=== PATIENT | female | born 1965 | race Caucasian/White ===

== ENCOUNTER 2016-06-11 18:55 | Emergency (ER) | payer BC ==
[2016-06-11 19:10] VITALS: RESP 18
--- NOTE | 2016-06-11 20:00 | ED ---
General Adult HPI - General Source: patient, EMS, RN notes reviewed Mode of arrival: EMS Limitations: no limitations <Germain Lynch - Last Filed: 06/11/16 19:57> <Pierre Leon - Last Filed: 06/12/16 06:39> - General Chief complaint: Psychiatric Symptoms Stated complaint: Mental Health Time Seen by Provider: 06/11/16 19:29 - History of Present Illness Initial comments: Patient is a 51-year-old female presenting to the emergency department with police escort for depression and suicidal ideation. Patient is agitated and uncooperative. Patient states she is chronically depressed. Patient states she always has thoughts of harming herself. Patient does admit to having guns in her household. Patient states she went to see her doctor today and was given a number if she needed help. Patient called that number and did express her depression and chronic suicidal thoughts. Following this the please didn't show up on her house and patient did agree for transport. Patient is agitated that she is here and states she does not want to be here. Patient admits to having thoughts of aggression and sometimes wanting to hurt people however no specific homicidal thoughts. Patient has no specific physical complaints. Patient denies hallucinations however states she chronically does talk to people. Patient does drink alcohol daily. No marijuana use since age 11, [address] other [address] drug use. (Germain Lynch) - Related Data Home Medications Medication Instructions Recorded Confirmed Unable To Assess [Unable to Assess] 06/11/16 06/11/16 Allergies Allergy/AdvReac Type Severity Reaction Status Date / Time Unable to Assess Allergy Verified 06/11/16 19:11 Review of Systems ROS Other: All systems not noted in ROS Statement are negative. Constitutional: Denies: fever Eyes: Denies: eye pain ENT: Denies: ear pain Respiratory: Denies: cough Cardiovascular: Denies: chest pain Endocrine: Denies: fatigue Gastrointestinal: Denies: abdominal pain Genitourinary: Denies: dysuria Musculoskeletal: Denies: back pain Skin: Denies: rash Neurological: Denies: weakness Psychiatric: Reports: anxiety, depression, suicidal thoughts <Germain Lynch - Last Filed: 06/11/16 19:57> ROS Other: All systems not noted in ROS Statement are negative. <Pierre Leon - Last Filed: 06/12/16 06:39> ROS Statement: Those systems with pertinent positive or pertinent negative responses have been documented in the HPI. Past Medical History Past Medical History: Pneumonia History of Any Multi-Drug Resistant Organisms: None Reported Past Surgical History: No Surgical Hx Reported Past Psychological History: ADD/ADHD, Anxiety, Depression, PTSD Smoking Status: Current every day smoker Past Alcohol Use History: Abuse, Daily, Heavy Past Drug Use History: None Reported <Germain Lynch - Last Filed: 06/11/16 19:57> General Exam Limitations: no limitations General appearance: alert, in no apparent distress Head exam: Present: atraumatic, normocephalic Eye exam: Present: normal appearance, PERRL ENT exam: Present: normal oropharynx Neck exam: Present: normal inspection Respiratory exam: Present: normal lung sounds bilaterally Cardiovascular Exam: Present: regular rate, normal rhythm GI/Abdominal exam: Present: soft. Absent: tenderness Neurological exam: Present: alert. Absent: motor sensory deficit Psychiatric exam: Present: agitated Skin exam: Present: normal color <Germain Lynch - Last Filed: 06/11/16 19:57> Medical Decision Making <Germain Lynch - Last Filed: 06/11/16 19:57> - Lab Data Result diagrams: 06/11/16 19:45 06/11/16 19:45 <Pierre Leon - Last Filed: 06/12/16 06:39> - Medical Decision Making 51 female to the ER for reevaluation of psychiatric disease, patient was medically clear and seen and evaluated by psychiatry, patient can be discharged home (Pierre Leon) - Lab Data Lab Results 06/11/16 06/11/16 Range/Units 19:45 19:45 WBC 13.9 H (3.8-10.6) k/uL RBC 3.94 (3.80-5.40) m/uL Hgb 14.5 (11.4-16.0) gm/dL Hct 44.2 (34.0-46.0) % MCV 112.1 H (80.0-100.0) fL MCH 36.9 H (25.0-35.0) pg MCHC 32.9 (31.0-37.0) g/dL RDW 14.3 (11.5-15.5) % Plt Count 289 (150-450) k/uL Neutrophils % 66 % Lymphocytes % 25 % Monocytes % 4 % Eosinophils % 1 % Basophils % 1 % Neutrophils # 9.2 H (1.3-7.7) k/uL Lymphocytes # 3.5 (1.0-4.8) k/uL Monocytes # 0.5 (0-1.0) k/uL Eosinophils # 0.1 (0-0.7) k/uL Basophils # 0.1 (0-0.2) k/uL Toxic Granulation Present Poikilocytosis (manual Present Macrocytosis Marked Sodium 140 (137-145) mmol/L Potassium 3.8 (3.5-5.1) mmol/L Chloride 101 (98-107) mmol/L Carbon Dioxide 20 L (22-30) mmol/L Anion Gap 19 mmol/L BUN 3 L (7-17) mg/dL Creatinine 0.42 L (0.52-1.04) mg/dL Est GFR (MDRD) Af Amer >60 (>60 ml/min/1.73 sqM) Est GFR (MDRD) Non-Af >60 (>60 ml/min/1.73 sqM) Glucose 121 H (74-99) mg/dL Calcium 10.5 H (8.4-10.2) mg/dL Serum Alcohol 223 mg/dL Disposition <Germain Lynch - Last Filed: 06/11/16 19:57> <Pierre Leon - Last Filed: 06/12/16 06:39> Clinical Impression: Depression Disposition: HOME SELF-CARE Condition: Good Instructions: Depression (ED) Referrals: None,Stated [Primary Care Provider] - 1-2 days
[2016-06-11 20:13] LABS: Basophils # (A) 0.1 k/uL (0-0.2); Basophils % (A) 1 %; CH 37.7; CHCM 33.8; Eosinophils # (A) 0.1 k/uL (0-0.7); Eosinophils % (A) 1 %; HCT 44.2 % (34.0-46.0); HDW 1.97; HGB 14.5 gm/dL (11.4-16.0); Luc # (Auto) 0.38; Luc % (Auto) 3; Lymphocytes # (A) 3.5 k/uL (1.0-4.8); Lymphocytes % (A) 25 %; MCH 36.9 pg (25.0-35.0); MCHC 32.9 g/dL (31.0-37.0); MCV 112.1 fL (80.0-100.0); Macrocytosis Marked; Mean Platelet Volume 7.7; Monocytes # (A) 0.5 k/uL (0-1.0); Monocytes % (A) 4 %; Neutrophils # (A) 9.2 k/uL (1.3-7.7); Neutrophils % (A) 66 %; RBC 3.94 m/uL (3.80-5.40); RDW 14.3 % (11.5-15.5); WBC 13.9 k/uL (3.8-10.6); WBC (Perox) 13.34
[2016-06-11 20:22] LABS: Anion Gap 19 mmol/L; Blood Urea Nitrogen 3 mg/dL (7-17); Calcium 10.5 mg/dL (8.4-10.2); Carbon Dioxide 20 mmol/L (22-30); Chloride 101 mmol/L (98-107); Glucose 121 mg/dL (74-99); Non-African American GFR(MDRD) >60 (>60 ml/min/1.73 sqM); Potassium 3.8 mmol/L (3.5-5.1); Sodium 140 mmol/L (137-145)
[2016-06-11 20:25] LABS: Alcohol 223 mg/dL
[2016-06-11 20:34] LABS: Toxic Granulation Present
[2016-06-12 06:47] VITALS: BP 135/80; PULSE 88; TEMP 98.2
== END 2016-06-12 06:47 | disposition home or self-care (01) ==
LOC: EC 18:55
DX: F32.9 Major depressive disorder, single episode, unspecified (principal); R45.851 Suicidal ideations; F17.200 Nicotine dependence, unspecified, uncomplicated
CPT/HCPCS: 36415; 80048; 80053; 80320; 82746; 84439; 84443; 84550; 85025; 85652; 86038; 86140; 86160; 86200; 86431; 86618; 99284

== ENCOUNTER → 2016-07-26 | Outpatient (CLI) | payer BC ==
--- NOTE | 2016-07-29 08:47 | XR ---
EXAMINATION TYPE: XR chest 2V DATE OF EXAM: 07/26/2016 COMPARISON: NONE HISTORY: Cough TECHNIQUE: Frontal and lateral views of the chest are obtained. FINDINGS: There is no focal air space opacity, pleural effusion, or pneumothorax seen. The cardiac silhouette size is within normal limits. The osseous structures are intact. IMPRESSION: No acute cardiopulmonary process.
== END ==
LOC: RADXRYALE 09:30
PROVIDERS: ATTEND Physician Assistant Medical
DX: R05 Cough (principal)
CPT/HCPCS: 71020

== ENCOUNTER → 2016-08-29 | Outpatient (CLI) | payer BC ==
--- NOTE | 2016-08-29 12:59 | US ---
EXAMINATION TYPE: US abdomen complete DATE OF EXAM: 08/29/2016 COMPARISON: NONE CLINICAL HISTORY: K70.10 Alcoholic hepatitis without ascites. EXAM MEASUREMENTS: Liver Length: 14.0 cm Gallbladder Wall: 0.1 cm CBD: 0.3 cm Spleen: 7.9 cm Right Kidney: 9.4 x 3.9 x 4.4 cm Left Kidney: 9.9 x 5.0 x3.9 cm Pancreas: wnl portions seen Liver: wnl Gallbladder: wnl Evidence for sonographic Rodriguez's sign: No CBD: wnl Spleen: wnl Right Kidney: No hydronephrosis or masses seen Left Kidney: No hydronephrosis or masses seen Upper IVC: wnl portion seen Abd Aorta: wnl portion seen The liver is homogenous. The intrahepatic portion of the IVC and proximal abdominal aorta are within normal limits. There is no evidence of cholelithiasis. Common bile duct is unremarkable. The visu alized portions of the pancreas are homogenous. The spleen is unremarkable. Kidneys are symmetric a nd free of hydronephrosis. No renal lesions are seen. IMPRESSION: Unremarkable study
== END | disposition home or self-care (01) ==
LOC: RADUSWWP 10:35
DX: K70.10 Alcoholic hepatitis without ascites (principal)
CPT/HCPCS: 76700

== ENCOUNTER 2016-09-12 17:50 | Inpatient (IN) | payer BC ==
[2016-09-12] MEDS ORDERED: SODIUM CHLORIDE 0.9% 1,000 ML IV STA ×2 (18:05)
[2016-09-12 18:41] LABS: Basophils % (A) 0 %; CH 35.4; CHCM 35.6; Eosinophils % (A) 0 %; HDW 2.13; Luc # (Auto) 0.17; Luc % (Auto) 2; Lymphocytes # (A) 1.7 k/uL (1.0-4.8); Lymphocytes % (A) 15 %; MCH 35.1 pg (25.0-35.0); MCHC 35.2 g/dL (31.0-37.0); MCV 99.5 fL (80.0-100.0); Macrocytosis Slight; Mean Platelet Volume 9.2; Monocytes # (A) 0.1 k/uL (0-1.0); Monocytes % (A) 1 %; Neutrophils # (A) 9.2 k/uL (1.3-7.7); Neutrophils % (A) 82 %; RBC 1.49 m/uL (3.80-5.40); RDW 15.1 % (11.5-15.5); WBC 11.2 k/uL (3.8-10.6); WBC (Perox) 11.11
[2016-09-12 18:46] LABS: HCT 14.8 % (34.0-46.0); HGB 5.2 gm/dL (11.4-16.0)
[2016-09-12 18:50] LABS: INR 1.3 (<1.2); Partial Thromboplastin Time 25.7 sec (22.0-30.0); Prothrombin Time 13.1 sec (9.0-12.0)
[2016-09-12 18:55] LABS: Calcium 8.4 mg/dL (8.4-10.2); Magnesium 1.7 mg/dL (1.6-2.3); Phosphorous 2.7 mg/dL (2.5-4.5); Total Bilirubin 2.7 mg/dL (0.2-1.3); Total Protein 6.5 g/dL (6.3-8.2)
[2016-09-12 18:56] LABS: Creatine Kinase 41 U/L (30-135)
[2016-09-12 19:01] LABS: Potassium 2.4 mmol/L (3.5-5.1)
[2016-09-12 19:09] LABS: Creatine Kinase MB <0.2 ng/mL (0.0-2.4); Troponin I <0.012 ng/mL (0.000-0.034)
[2016-09-12 19:15] LABS: Polychromasia Present
[2016-09-12] MEDS: POTASSIUM CHLORIDE 20 MEQ, LIDOCAINE 2% INJ 20 MG in SODIUM CHLORIDE 0.9% 100 ML IVPB SCH (19:59)
[2016-09-12 20:08] LABS: Appearance,Urine Cloudy (Clear); Bacteria,Urine Many /hpf; Bilirubin,Urine 1+ (Negative); Glucose,Urine (UA) Negative (Negative); Ketones,Urine Negative (Negative); Leukocyte Esterase,Urine Moderate (Negative); Mucus,Urine Rare /hpf; Nitrite,Urine Negative (Negative); PH, Urine 5.5 (5.0-8.0); Particle Count 33821; Protein,Urine Trace (Negative); RBC,Urine 5 /hpf (0-5); UA Billing (MACRO vs. MICRO) MICRO
[2016-09-12] MEDS ORDERED: PANTOPRAZOLE 40 MG/10 ML VIAL IVP STA (20:09)
[2016-09-12] MEDS ORDERED: POTASSIUM CHLORIDE 20 MEQ, LIDOCAINE 2% INJ 20 MG in SODIUM CHLORIDE 0.9% 100 ML IVPB ONE (20:09)
--- NOTE | 2016-09-12 20:18 | ED ---
Weakness HPI - General Chief complaint: Weakness Stated complaint: dehydration,hypotension Time Seen by Provider: 09/12/16 17:57 Source: patient, EMS Mode of arrival: EMS Limitations: no limitations - History of Present Illness Initial comments: This 51-year-old white female presents with the complaint of some weakness. She apparently was found down on the floor on a pile of clothes by her two daughters this afternoon. She apparently been there for at least several hours but the exact time is unknown. The patient does not have any current complaints. She denies any actual injuries. She overall is a very poor historian. The daughters relate that she has a severe alcoholism problem. She also has a psychiatric history. She does not take care of herself very well. She has not been eating or drinking much in the past several days. Her last drink was just a small amount 2 days ago. She apparently has lost about 40 pounds over the last month or 2. There is no other complaints or modifying factors. History is somewhat limited due to patient's mental status. - Related Data Home Medications Medication Instructions Recorded Confirmed FLUoxetine HCL [PROzac] 20 mg PO HS 09/12/16 09/12/16 Levothyroxine Sodium [Synthroid] 25 mcg PO DAILY 09/12/16 09/12/16 Naproxen 500 mg PO BID PRN 09/12/16 09/12/16 clonazePAM [KlonoPIN] 0.5 mg PO BID PRN 09/12/16 09/12/16 Allergies Allergy/AdvReac Type Severity Reaction Status Date / Time prednisone AdvReac Nausea & Verified 09/12/16 18:39 Vomiting Review of Systems ROS Statement: Those systems with pertinent positive or pertinent negative responses have been documented in the HPI. ROS Other: All systems not noted in ROS Statement are negative. Past Medical History Past Medical History: Liver Disease, Pneumonia Additional Past Medical History / Comment(s): Failure to thrive, liver failure History of Any Multi-Drug Resistant Organisms: None Reported Past Surgical History: No Surgical Hx Reported Past Psychological History: ADD/ADHD, Anxiety, Depression, PTSD Smoking Status: Current every day smoker Past Alcohol Use History: Abuse, Daily, Heavy Past Drug Use History: None Reported General Exam - General Exam Comments Initial Comments: GENERAL: The patient is malnourished and dehydrated. VITAL SIGNS: Heart rate, blood pressure, respiratory rate reviewed as recorded in nurse's notes. EYES: Pupils are round and reactive. Extraocular movements are intact. No conjunctival / lid redness or swelling. ENT: No external evidence of injury, swelling, or ecchymosis. Airway is patent. Throat is clear. Mouth is extremely dry with sores on her lips. NECK: There is some tenderness noted to the bilateral paracervical musculature. No subcutaneous emphysema. Trachea is midline. No thyroid mass. HEART: Regular rate and rhythm. Good peripheral pulses. LUNGS/CHEST: Breath sounds clear and equal bilaterally. No rales, rhonchi, or wheezes. No ecchymosis, subcutaneous emphysema, or tenderness. ABDOMEN: Abdomen soft without tenderness. No palpable masses or organomegaly. No peritoneal signs. No abdominal wall swelling or ecchymosis. EXTREMITIES: No extremity tenderness. Normal muscle tone and function. No thoracolumbar tenderness. NEUROLOGIC: Sensation is grossly intact. Cranial nerve exam reveals face is symmetrical, tongue is midline, speech is clear. SKIN: There is a slight bruise noted to the lateral right shoulder. No induration or masses noted. PSYCHIATRIC: Alert and conversive. She seems to ramble about nonpertinent the events. Limitations: no limitations Course Vital Signs 09/12/16 09/12/16 09/12/16 17:54 18:25 19:15 Temperature 97.3 F L 98.3 F Pulse Rate 68 95 97 Pulse Rate [ Machine Trimmer ] Respiratory 20 20 20 Rate Blood Pressure 95/58 95/60 141/90 O2 Sat by Pulse 95 95 90 L Oximetry 09/12/16 19:27 Temperature Pulse Rate Pulse Rate [ 109 H Machine Trimmer ] Respiratory Rate Blood Pressure O2 Sat by Pulse Oximetry Medical Decision Making - Medical Decision Making The patient was seen and examined. All diagnostics were reviewed. She was hydrated via EMS as her blood pressure was quite low with a systolic of 77. She received additional hydration in our ER. The EKG was done and shows a normal sinus rhythm at a rate of 90. There is no acute ST-T wave changes identified. The patient's QRS duration is 100 and the QTc interval is 308. A chest x-ray was done and does not show any acute processes. The computed tomography scan of the brain was negative. The CT of the cervical spine shows some degenerative changes. The laboratory shows a severe hypokalemia as well as a hypochloremia. She has a severe anemia with a hemoglobin of 5.2. She has a degree of renal insufficiency as well. Her potassium is replaced. 3 units of blood are ordered for transfusion. Even though her initial Hemoccult is negative, it is felt as though she likely does have a GI bleed. She apparently does have a history of previous GI bleed as well which is likely due to her alcohol abuse. It is felt as though he would benefit from admission to the hospital for further treatment. Case is discussed with internal medicine and they're agreeable to admission as well. Case was discussed with Dr. Baird from ICU and patient be admitted to the intensive care unit for further treatment with GI and ICU to consult. She appears improved on recheck. Approximately 30 minutes of critical care time was utilized and the treatment of the patient. - Lab Data Result diagrams: 09/12/16 18:19 09/12/16 18:19 Lab Results 09/12/16 09/12/16 09/12/16 Range/Units 18:19 18:19 18:19 WBC 11.2 H (3.8-10.6) k/uL RBC 1.49 L (3.80-5.40) m/uL Hgb 5.2 L* (11.4-16.0) gm/dL Hct 14.8 L* (34.0-46.0) % MCV 99.5 (80.0-100.0) fL MCH 35.1 H (25.0-35.0) pg MCHC 35.2 (31.0-37.0) g/dL RDW 15.1 (11.5-15.5) % Plt Count 89 L (150-450) k/uL Neutrophils % 82 % Lymphocytes % 15 % Monocytes % 1 % Eosinophils % 0 % Basophils % 0 % Neutrophils # 9.2 H (1.3-7.7) k/uL Lymphocytes # 1.7 (1.0-4.8) k/uL Monocytes # 0.1 (0-1.0) k/uL Eosinophils # 0.0 (0-0.7) k/uL Basophils # 0.0 (0-0.2) k/uL Polychromasia Present Macrocytosis Slight PT (9.0-12.0) sec INR (<1.2) APTT (22.0-30.0) sec Sodium 131 L (137-145) mmol/L Potassium 2.4 L* (3.5-5.1) mmol/L Chloride 88 L (98-107) mmol/L Carbon Dioxide 25 (22-30) mmol/L Anion Gap 18 mmol/L BUN 45 H (7-17) mg/dL Creatinine 1.20 H (0.52-1.04) mg/dL Est GFR (MDRD) Af Amer 58 (>60 ml/min/1.73 sqM) Est GFR (MDRD) Non-Af 48 (>60 ml/min/1.73 sqM) Glucose 114 H (74-99) mg/dL Plasma Lactic Acid Maaynk (0.7-2.0) mmol/L Calcium 8.4 (8.4-10.2) mg/dL Phosphorus 2.7 (2.5-4.5) mg/dL Magnesium 1.7 (1.6-2.3) mg/dL Total Bilirubin 2.7 H (0.2-1.3) mg/dL AST 47 H (14-36) U/L ALT 27 (9-52) U/L Alkaline Phosphatase 171 H (38-126) U/L Total Creatine Kinase 41 (30-135) U/L CK-MB (CK-2) <0.2 (0.0-2.4) ng/mL CK-MB (CK-2) Rel Index Troponin I <0.012 (0.000-0.034) ng/mL Total Protein 6.5 (6.3-8.2) g/dL Albumin 3.5 (3.5-5.0) g/dL TSH 7.760 H (0.465-4.680) mIU/L Urine Color Urine Appearance (Clear) Urine pH (5.0-8.0) Ur Specific [place] (1.001-1.035) Urine Protein (Negative) Urine Glucose (UA) (Negative) Urine Ketones (Negative) Urine Blood (Negative) Urine Nitrite (Negative) Urine Bilirubin (Negative) Urine Urobilinogen (<2.0) mg/dL Ur Leukocyte Esterase (Negative) Urine RBC (0-5) /hpf Urine Bacteria (None) /hpf Hyaline Casts (0-2) /lpf Urine Mucus (None) /hpf Urine Yeast (Budding) (None) /hpf Stool Occult Blood (Negative) Blood Type Blood Type Confirm Blood Type Recheck Antibody Screen Crossmatch Spec Expiration Date 09/12/16 09/12/16 09/12/16 Range/Units 18:19 18:19 18:19 WBC (3.8-10.6) k/uL RBC (3.80-5.40) m/uL Hgb (11.4-16.0) gm/dL Hct (34.0-46.0) % MCV (80.0-100.0) fL MCH (25.0-35.0) pg MCHC (31.0-37.0) g/dL RDW (11.5-15.5) % Plt Count (150-450) k/uL Neutrophils % % Lymphocytes % % Monocytes % % Eosinophils % % Basophils % % Neutrophils # (1.3-7.7) k/uL Lymphocytes # (1.0-4.8) k/uL Monocytes # (0-1.0) k/uL Eosinophils # (0-0.7) k/uL Basophils # (0-0.2) k/uL Polychromasia Macrocytosis PT 13.1 H (9.0-12.0) sec INR 1.3 H (<1.2) APTT 25.7 (22.0-30.0) sec Sodium (137-145) mmol/L Potassium (3.5-5.1) mmol/L Chloride (98-107) mmol/L Carbon Dioxide (22-30) mmol/L Anion Gap mmol/L BUN (7-17) mg/dL Creatinine (0.52-1.04) mg/dL Est GFR (MDRD) Af Amer (>60 ml/min/1.73 sqM) Est GFR (MDRD) Non-Af (>60 ml/min/1.73 sqM) Glucose (74-99) mg/dL Plasma Lactic Acid Mayank 2.3 H* (0.7-2.0) mmol/L Calcium (8.4-10.2) mg/dL Phosphorus (2.5-4.5) mg/dL Magnesium (1.6-2.3) mg/dL Total Bilirubin (0.2-1.3) mg/dL AST (14-36) U/L ALT (9-52) U/L Alkaline Phosphatase (38-126) U/L Total Creatine Kinase (30-135) U/L CK-MB (CK-2) (0.0-2.4) ng/mL CK-MB (CK-2) Rel Index Troponin I (0.000-0.034) ng/mL Total Protein (6.3-8.2) g/dL Albumin (3.5-5.0) g/dL TSH (0.465-4.680) mIU/L Urine Color Urine Appearance (Clear) Urine pH (5.0-8.0) Ur Specific [place] (1.001-1.035) Urine Protein (Negative) Urine Glucose (UA) (Negative) Urine Ketones (Negative) Urine Blood (Negative) Urine Nitrite (Negative) Urine Bilirubin (Negative) Urine Urobilinogen (<2.0) mg/dL Ur Leukocyte Esterase (Negative) Urine RBC (0-5) /hpf Urine Bacteria (None) /hpf Hyaline Casts (0-2) /lpf Urine Mucus (None) /hpf Urine Yeast (Budding) (None) /hpf Stool Occult Blood (Negative) Blood Type A Positive Blood Type Confirm Blood Type Recheck CABO Indicated Antibody Screen NEGATIVE Crossmatch See Detail Spec Expiration Date 09/15/2016 - 231809/12/16 09/12/16 09/12/16 Range/Units 19:13 19:57 19:57 WBC (3.8-10.6) k/uL RBC (3.80-5.40) m/uL Hgb (11.4-16.0) gm/dL Hct (34.0-46.0) % MCV (80.0-100.0) fL MCH (25.0-35.0) pg MCHC (31.0-37.0) g/dL RDW (11.5-15.5) % Plt Count (150-450) k/uL Neutrophils % % Lymphocytes % % Monocytes % % Eosinophils % % Basophils % % Neutrophils # (1.3-7.7) k/uL Lymphocytes # (1.0-4.8) k/uL Monocytes # (0-1.0) k/uL Eosinophils # (0-0.7) k/uL Basophils # (0-0.2) k/uL Polychromasia Macrocytosis PT (9.0-12.0) sec INR (<1.2) APTT (22.0-30.0) sec Sodium (137-145) mmol/L Potassium (3.5-5.1) mmol/L Chloride (98-107) mmol/L Carbon Dioxide (22-30) mmol/L Anion Gap mmol/L BUN (7-17) mg/dL Creatinine (0.52-1.04) mg/dL Est GFR (MDRD) Af Amer (>60 ml/min/1.73 sqM) Est GFR (MDRD) Non-Af (>60 ml/min/1.73 sqM) Glucose (74-99) mg/dL Plasma Lactic Acid [place]ank (0.7-2.0) mmol/L Calcium (8.4-10.2) mg/dL Phosphorus (2.5-4.5) mg/dL Magnesium (1.6-2.3) mg/dL Total Bilirubin (0.2-1.3) mg/dL AST (14-36) U/L ALT (9-52) U/L Alkaline Phosphatase (38-126) U/L Total Creatine Kinase (30-135) U/L CK-MB (CK-2) (0.0-2.4) ng/mL CK-MB (CK-2) Rel Index Troponin I (0.000-0.034) ng/mL Total Protein (6.3-8.2) g/dL Albumin (3.5-5.0) g/dL TSH (0.465-4.680) mIU/L Urine Color Yellow Urine Appearance Cloudy H (Clear) Urine pH 5.5 (5.0-8.0) Ur Specific [place] 1.010 (1.001-1.035) Urine Protein Trace H (Negative) Urine Glucose (UA) Negative (Negative) Urine Ketones Negative (Negative) Urine Blood Negative (Negative) Urine Nitrite Negative (Negative) Urine Bilirubin 1+ H (Negative) Urine Urobilinogen 6.0 (<2.0) mg/dL Ur Leukocyte Esterase Moderate H (Negative) Urine RBC 5 (0-5) /hpf Urine Bacteria Many H (None) /hpf Hyaline Casts 7 H (0-2) /lpf Urine Mucus Rare H (None) /hpf Urine Yeast (Budding) Occasional H (None) /hpf Stool Occult Blood Negative (Negative) Blood Type Blood Type Confirm A Positive Blood Type Recheck Antibody Screen Crossmatch Spec Expiration Date Disposition Clinical Impression: GI bleed, Anemia, Alcohol abuse, Fall, Weakness, Hypochloremia, Cervical arthritis, Dehydration, Hypothyroidism, Hypotension, Hyponatremia, Hypoxia Disposition: ADMITTED IP TO THIS HOSP Condition: Critical Referrals: Dank Gonzalez DO [Primary Care Provider] - 1-2 days Time of Disposition: 20:18 Decision Date: 09/12/16 Decision Time: 20:18
[2016-09-12] MEDS ORDERED: ACETAMINOPHEN TAB 325 MG TAB PO PRN (20:34)
[2016-09-12] MEDS ORDERED: IPRATROPIUM-ALBUTEROL 3 ML NEB INHALATION PRN (20:34)
[2016-09-12] MEDS ORDERED: NALOXONE 0.4 MG/ML 1 ML VIAL IV PRN (20:34)
[2016-09-12] MEDS ORDERED: MORPHINE SULFATE 4 MG/ML SYRINGE IV PRN (20:34)
[2016-09-12] MEDS ORDERED: clonazePAM 0.5 MG TAB PO PRN (20:38)
[2016-09-12] MEDS ORDERED: FLUoxetine HCL 20 MG CAP PO SCH (21:00)
--- NOTE | 2016-09-12 21:36 | XR ---
EXAMINATION TYPE: XR chest 2V DATE OF EXAM: 09/12/2016 COMPARISON: 07/26/2016 HISTORY: Weakness TECHNIQUE: Frontal and lateral views of the chest are obtained. FINDINGS: Heart and mediastinum are normal. Lungs are clear. Diaphragm is normal. There are chest le ads. IMPRESSION: Normal chest. No change.
[2016-09-12 21:39] LABS: Glucose,Whole Blood 126 mg/dL (75-99)
--- NOTE | 2016-09-12 21:56 | CT ---
EXAMINATION TYPE: CT brain sushila mcbride DATE OF EXAM: 09/12/2016 COMPARISON: NONE HISTORY: Weakness neck pain CT DLP: mGycm Automated exposure control for dose reduction was used. TECHNIQUE: CT scan of the head and cervical spine are performed without contrast. FINDINGS: There is some cerebral cortical atrophy. There is no mass effect nor midline shift. There is no sign of intracranial hemorrhage. Calvarium is intact. There is mild straightening of the vertebra. There is mild spurring of the endplates in the mid and l ower cervical spine. There is multilevel hypertrophic cervical facet arthropathy. There is no evidenc e of a fracture. Skull base is intact. IMPRESSION: Mild cerebral atrophy. No acute intracranial abnormality. Multilevel cervical spondylosis. No fracture.
[2016-09-12 22:37] VITALS: BMI 18.5
[2016-09-12 23:20] VITALS: RESP 18
[2016-09-13] MEDS: POTASSIUM CHLORIDE 20 MEQ, LIDOCAINE 2% INJ 20 MG in SODIUM CHLORIDE 0.9% 100 ML IVPB SCH (00:39)
[2016-09-13] MEDS ORDERED: SODIUM CHLORIDE 0.9% 1,000 ML IV ONE ×2 (00:41→03:30)
[2016-09-13] MEDS: LORazepam 2 MG/ML SYRINGE IV PRN ×2 (02:00→10:23)
[2016-09-13] MEDS ORDERED: LEVOTHYROXINE 25 MCG TAB PO SCH (06:30)
[2016-09-13 06:35] VITALS: TEMP 98.4
[2016-09-13 07:25] LABS: Anisocytosis Moderate; Basophils % (A) 0 %; CH 30.2; CHCM 34.6; Eosinophils % (A) 0 %; HCT 28.5 % (34.0-46.0); HDW 3.14; Luc # (Auto) 0.06; Luc % (Auto) 1; Lymphocytes # (A) 1.2 k/uL (1.0-4.8); Lymphocytes % (A) 12 %; MCHC 34.2 g/dL (31.0-37.0); Mean Platelet Volume 9.5; Microcytosis Slight; Monocytes # (A) 0.1 k/uL (0-1.0); Monocytes % (A) 1 %; Neutrophils # (A) 8.9 k/uL (1.3-7.7); Neutrophils % (A) 86 %; RBC 3.26 m/uL (3.80-5.40); RDW 22.8 % (11.5-15.5); WBC 10.3 k/uL (3.8-10.6)
[2016-09-13 07:26] LABS: HGB 9.8 gm/dL (11.4-16.0)
[2016-09-13 07:27] LABS: MCV 87.5 fL (80.0-100.0)
[2016-09-13 07:31] LABS: Anion Gap 13 mmol/L; Blood Urea Nitrogen 34 mg/dL (7-17); Carbon Dioxide 23 mmol/L (22-30); Chloride 102 mmol/L (98-107); Glucose 116 mg/dL (74-99); Non-African American GFR(MDRD) >60 (>60 ml/min/1.73 sqM); Sodium 138 mmol/L (137-145)
[2016-09-13 07:40] LABS: Potassium 2.7 mmol/L (3.5-5.1)
[2016-09-13] MEDS ORDERED: Potassium Replacement Protocol 1 EACH MISC MISCELLANE PRN (08:06)
[2016-09-13] MEDS ORDERED: PANTOPRAZOLE 40 MG/10 ML VIAL IV SCH (09:00)
[2016-09-13] MEDS: POTASSIUM CHLORIDE 10 MEQ, LIDOCAINE 2% INJ 10 MG in SODIUM CHLORIDE 0.9% 100 ML IV SCH ×2 (09:15→11:41)
--- NOTE | 2016-09-13 09:21 | P.CONS ---
History of Present Illness - Reason for Consult Consult date: 09/13/16 anemia possible GI bleed Requesting physician: Bradley Rainey - History of Present Illness 51-year-old female with a history of EtOH abuse admitted status post fall with active alcohol intake last drink about 3 days ago. Medical records nursing staff assisted with medical history. Apparently patient has not been eating well for the last few months with decreased appetite with weight loss more than 20 pounds. Consultation requested for anemia possible GI bleed. Presently patient is resting in the ICU incontinent of urine and nonbloody liquid stool. Recently evaluated in the GI office last month regards to her history of alcoholism. No history of EGD colonoscopy. Outpatient abdominal ultrasound reported no stones. Liver/gallbladder within normal limits. Admission hemoglobin 5.2. Received 3 units of blood present hemoglobin is 9.8. MCV 99. Platelet 89,000 now 67,000. Hemoglobin June 2016 was 14.5. MCV 112. Platelet 289. Admission INR 1.3. Hemoccult stool negative. Total bilirubin 2.7. AST 47. ALT 27. Alkaline phosphatase 171. Potassium 2.4. BUN 45 currently 1.2. Sodium 131. Review of Systems Medical records nursing staff assisted with history Constitutional: Denies fever, chills, sweats, weight gain, or loss. HEENT: Negative for migraines, blurred vision or loss, earaches, drainage, tinnitus, oral mucosal lesions, dysphagia, or odynophagia. CARDIAC: Negative for chest pain, arrhythmias, or palpitation. RESPIRATORY: Nicotine cigarette dependency. Negative for shortness of breath, hemoptysis, cough, or sputum production. GI: See HPI for pertinent findings. : Negative for hematuria, urgency, frequency, polyuria, or dysuria. GYNc: Denies possibility of . Negative vaginal discharge. MUSCULOSKELETAL: Negative for muscle aches, swelling, arthritis, and arthralgias. NEUROLOGIC: Negative for stroke or TIA. ENDOCRINE: Hypothyroidism.. SKIN: Negative for rash or itching. PSYCHIATRIC: Anxiety. Depression. ADHD. PTSD. ROS unobtainable: due to mental status All systems: negative Past Medical History Past Medical History: GERD/Reflux, Liver Disease, Pneumonia, Thyroid Disorder Additional Past Medical History / Comment(s): Failure to thrive, liver failure History of Any Multi-Drug Resistant Organisms: None Reported Past Surgical History: Tubal Ligation Past Anesthesia/Blood Transfusion Reactions: No Reported Reaction Past Psychological History: ADD/ADHD, Anxiety, Depression, PTSD Smoking Status: Current every day smoker Past Alcohol Use History: Abuse, Daily, Heavy Past Drug Use History: None Reported Medications and Allergies Home Medications Medication Instructions Recorded Confirmed Type FLUoxetine HCL [PROzac] 20 mg PO HS 09/12/16 09/12/16 History Levothyroxine Sodium [Synthroid] 25 mcg PO DAILY 09/12/16 09/12/16 History Naproxen 500 mg PO BID PRN 09/12/16 09/12/16 History clonazePAM [KlonoPIN] 0.5 mg PO BID PRN 09/12/16 09/12/16 History Allergies Allergy/AdvReac Type Severity Reaction Status Date / Time prednisone AdvReac Nausea & Verified 09/12/16 18:39 Vomiting Physical Exam Vitals: Vital Signs Temp Pulse Pulse Resp BP Pulse Ox 09/13/16 06:00 126 H 94/66 99 09/13/16 05:55 84 94/66 99 09/13/16 05:50 88 91/62 94 L 09/13/16 05:45 86 91/62 100 09/13/16 05:40 83 91/62 97 09/13/16 05:35 101 H 88/66 91 L 09/13/16 05:30 72 88/66 92 L 09/13/16 05:25 96 99 09/13/16 05:20 85 74/60 96 09/13/16 05:15 81 74/60 99 09/13/16 05:10 109 H 74/60 94 L 09/13/16 05:05 84 74/60 99 09/13/16 05:00 98.4 F 82 74/60 99 09/13/16 04:55 85 74/60 97 09/13/16 04:50 85 74/60 94 L 09/13/16 04:45 84 74/60 92 L 09/13/16 04:40 122 H 74/60 97 09/13/16 04:35 99 74/60 100 09/13/16 04:30 98.5 F 99 74/60 97 09/13/16 04:25 91 74/60 99 09/13/16 04:20 92 74/60 98 09/13/16 04:15 84 74/60 97 09/13/16 04:10 82 74/60 97 09/13/16 04:05 82 74/60 95 09/13/16 04:00 98.7 F 85 18 74/60 99 09/13/16 03:55 93 74/60 98 09/13/16 03:50 83 74/60 99 09/13/16 03:45 84 74/60 99 09/13/16 03:40 94 74/60 99 09/13/16 03:35 98.7 F 94 74/60 96 09/13/16 03:30 86 74/60 93 L 09/13/16 03:25 85 74/60 100 09/13/16 03:20 81 100 09/13/16 03:15 84 98 09/13/16 03:10 102 H 97 09/13/16 03:05 120 H 96 09/13/16 03:00 83 100 09/13/16 02:55 84 100 09/13/16 02:50 83 99 09/13/16 02:45 82 100 09/13/16 02:40 85 100 09/13/16 02:35 92 99 09/13/16 02:30 82 99 09/13/16 02:25 79 82/56 98 09/13/16 02:20 81 82/56 99 09/13/16 02:15 82 82/56 99 09/13/16 02:10 81 82/56 99 09/13/16 02:05 83 82/56 97 09/13/16 02:00 82 82/56 100 09/13/16 01:50 82 82/56 99 09/13/16 01:40 82 82/56 98 09/13/16 01:30 83 82/56 99 09/13/16 01:20 82 82/56 98 09/13/16 01:15 98.7 F 82 18 74/60 99 09/13/16 01:10 98.7 F 83 82/56 99 09/13/16 01:00 81 82/56 99 09/13/16 00:50 87 82/56 100 09/13/16 00:40 80 82/56 100 09/13/16 00:30 71 82/56 87 L 09/13/16 00:20 86 83/61 99 09/13/16 00:10 86 83/61 99 09/13/16 00:00 83 18 88/59 99 09/12/16 23:53 79 80/59 99 09/12/16 23:50 85 80/59 99 09/12/16 23:40 87 86/63 100 09/12/16 23:30 83/63 100 09/12/16 23:20 98.2 F 86 18 82/61 100 09/12/16 23:16 96.9 F L 87 18 82/61 98 09/12/16 23:10 87 83/58 100 09/12/16 23:00 87 83/58 100 09/12/16 22:50 83 83/58 100 09/12/16 22:40 100 83/58 100 09/12/16 22:30 105 H 78/53 96 09/12/16 22:20 88 78/53 100 09/12/16 22:10 89 78/53 100 09/12/16 22:00 91 78/53 99 09/12/16 21:50 98 75/51 91 L 09/12/16 21:40 91 74/51 100 09/12/16 21:37 118 H 09/12/16 21:20 97.2 F L 107 H 20 78/47 94 L 09/12/16 20:50 97.5 F L 98 20 87/50 94 L 09/12/16 20:40 97.1 F L 93 20 86/50 96 09/12/16 20:37 94 84/43 09/12/16 20:32 97.0 F L 86 20 81/44 94 L 09/12/16 19:27 109 H 09/12/16 19:15 98.3 F 97 20 141/90 90 L 09/12/16 18:25 95 20 95/60 95 09/12/16 17:54 97.3 F L 68 20 95/58 95 Intake and Output 09/12/16 09/13/16 09/13/16 22:59 06:59 14:59 Intake Total 1310 3520 Balance 1310 3520 Intake: IV 2800 Sodium Chloride 0.9% 1, 800 000 ml @ 100 mls/hr IV . Q10H STA Rx#:[id number] Sodium Chloride 0.9% 1, 2000 000 ml @ 999 mls/hr IV . Q1H1M ONE Rx#:[id number] Amount of Fluid Infused ( 1000 ml) Blood Product 310 620 Rc As-3 Unit 310 [id number] Rc As-3 Unit 310 [id number] Rc As-3 Unit 310 [id number] Other 100 Rc As-3 Unit 100 [id number] Other: # Voids 1 # Bowel Movements 1 Weight 45.9 kg 45.9 kg General appearance: The patient is arousable somewhat drowsy answers simple questions no acute distress. HET: Head is normocephalic and atraumatic. Pupils are equal and reactive. Oropharynx is clear without lesions. Neck: Supple without lymphadenopathy. Trachea midline. Heart: S1 S2. Regular rate and rhythm. Lungs: No crackles or wheezes are heard. Abdomen: Soft, nontender, nondistended with bowel sounds. No peritoneal signs. No palpable organomegaly or masses. Incontinent of liquid brown stool. Extremities: Normal skin color and turgor. No cyanosis, rash, ulceration, clubbing, or edema. Radial and pedal pulses are 2/4 bilaterally. Neurological: No focal deficits. Strength and sensation are grossly intact. Results CBC & Chem 7: 09/13/16 06:57 09/13/16 06:57 Labs: Abnormal Lab Results - Last 24 Hours (Table) 09/12/16 09/12/16 09/12/16 Range/Units 18:19 18:19 18:19 WBC 11.2 H (3.8-10.6) k/uL RBC 1.49 L (3.80-5.40) m/uL Hgb 5.2 L* (11.4-16.0) gm/dL Hct 14.8 L* (34.0-46.0) % MCH 35.1 H (25.0-35.0) pg RDW (11.5-15.5) % Plt Count 89 L (150-450) k/uL Neutrophils # 9.2 H (1.3-7.7) k/uL PT 13.1 H (9.0-12.0) sec INR 1.3 H (<1.2) Sodium 131 L (137-145) mmol/L Potassium 2.4 L* (3.5-5.1) mmol/L Chloride 88 L (98-107) mmol/L BUN 45 H (7-17) mg/dL Creatinine 1.20 H (0.52-1.04) mg/dL Glucose 114 H (74-99) mg/dL POC Glucose (mg/dL) (75-99) mg/dL Plasma Lactic Acid Mayank (0.7-2.0) mmol/L Calcium (8.4-10.2) mg/dL Total Bilirubin 2.7 H (0.2-1.3) mg/dL AST 47 H (14-36) U/L Alkaline Phosphatase 171 H (38-126) U/L TSH 7.760 H (0.465-4.680) mIU/L Urine Appearance (Clear) Urine Protein (Negative) Urine Bilirubin (Negative) Ur Leukocyte Esterase (Negative) Urine Bacteria (None) /hpf Hyaline Casts (0-2) /lpf Urine Mucus (None) /hpf Urine Yeast (Budding) (None) /hpf Crossmatch 09/12/16 09/12/16 09/12/16 Range/Units 18:19 18:19 19:57 WBC (3.8-10.6) k/uL RBC (3.80-5.40) m/uL Hgb (11.4-16.0) gm/dL Hct (34.0-46.0) % MCH (25.0-35.0) pg RDW (11.5-15.5) % Plt Count (150-450) k/uL Neutrophils # (1.3-7.7) k/uL PT (9.0-12.0) sec INR (<1.2) Sodium (137-145) mmol/L Potassium (3.5-5.1) mmol/L Chloride (98-107) mmol/L BUN (7-17) mg/dL Creatinine (0.52-1.04) mg/dL Glucose (74-99) mg/dL POC Glucose (mg/dL) (75-99) mg/dL Plasma Lactic Acid Mayank 2.3 H* (0.7-2.0) mmol/L Calcium (8.4-10.2) mg/dL Total Bilirubin (0.2-1.3) mg/dL AST (14-36) U/L Alkaline Phosphatase (38-126) U/L TSH (0.465-4.680) mIU/L Urine Appearance Cloudy H (Clear) Urine Protein Trace H (Negative) Urine Bilirubin 1+ H (Negative) Ur Leukocyte Esterase Moderate H (Negative) Urine Bacteria Many H (None) /hpf Hyaline Casts 7 H (0-2) /lpf Urine Mucus Rare H (None) /hpf Urine Yeast (Budding) Occasional H (None) /hpf Crossmatch See Detail 09/12/16 09/13/16 09/13/16 Range/Units 21:37 06:57 06:57 WBC (3.8-10.6) k/uL RBC 3.26 L (3.80-5.40) m/uL Hgb 9.8 L D (11.4-16.0) gm/dL Hct 28.5 L (34.0-46.0) % MCH (25.0-35.0) pg RDW 22.8 H (11.5-15.5) % Plt Count 67 L (150-450) k/uL Neutrophils # 8.9 H (1.3-7.7) k/uL PT (9.0-12.0) sec INR (<1.2) Sodium (137-145) mmol/L Potassium 2.7 L* (3.5-5.1) mmol/L Chloride (98-107) mmol/L BUN 34 H (7-17) mg/dL Creatinine (0.52-1.04) mg/dL Glucose 116 H (74-99) mg/dL POC Glucose (mg/dL) 126 H (75-99) mg/dL Plasma Lactic Acid Mayank (0.7-2.0) mmol/L Calcium 7.0 L (8.4-10.2) mg/dL Total Bilirubin (0.2-1.3) mg/dL AST (14-36) U/L Alkaline Phosphatase (38-126) U/L TSH (0.465-4.680) mIU/L Urine Appearance (Clear) Urine Protein (Negative) Urine Bilirubin (Negative) Ur Leukocyte Esterase (Negative) Urine Bacteria (None) /hpf Hyaline Casts (0-2) /lpf Urine Mucus (None) /hpf Urine Yeast (Budding) (None) /hpf Crossmatch Microbiology - Last 24 Hours (Table) 09/12/16 19:57 Urine Culture - Preliminary Urine,Voided Assessment and Plan (1) Anemia Narrative/Plan: 51-year-old female history of EtOH abuse presents status post fall with profound anemia possible GI bleed presently passing loose brown bowel movements with no clinical evidence to suggest an active GI bleed with hemoglobin drop more than 5 g in the last 3 months suggestive of acute blood loss anemia. Status: Acute (2) Alcohol abuse Status: Acute (3) Thrombocytopenia Status: Acute (4) Alcoholic hepatitis Status: Acute Plan: 1. Hepatitis panel. Ammonia level. IV Protonix 40 mg daily. Observe for clinical signs of bleeding. We'll reevaluate and discussed EGD colonoscopy when patient is more lucid. We'll continue to follow closely with you. CBC monitoring. Thank you for this kind referral and the opportunity to participate in the care of your patient. This consultation was discussed with Dr. Torres. The impression and plan of care have been directed as dictated.
[2016-09-13 09:25] LABS: INR 1.3 (<1.2); Prothrombin Time 12.6 sec (9.0-12.0)
[2016-09-13] MEDS ORDERED: FLUCONAZOLE 100 MG TAB PO SCH (09:30)
[2016-09-13] MEDS ORDERED: MAG HYDROX/AL HYDROX/SIMETH 30 ML, LIDOCAINE VISCOUS 30 ML, diphenhydrAMINE ELIXIR 75 M... PO SCH ×4 (09:30)
[2016-09-13 10:16] VITALS: BP 99/61; PULSE 84
[2016-09-13 12:05] LABS: Hepatitis B Surface Ag Index 0.05
[2016-09-13 12:11] LABS: Hepatitis B Core IgM Index 0.01
[2016-09-13 12:22] LABS: Hepatitis C Virus IgG Ab Negative (Negative); Hepatitis C Virus IgG Index 0.02
--- NOTE | 2016-09-13 12:50 | CONS ---
A 51-year-old female who apparently was found down on the floor at home in a pile of clothes by her 2 daughters. The time she was there is unknown. She had been there for at least a couple hours. She apparently had no complaints at that time. It is not clear how she got there whether she fell or whether she just sat down. Anyway she was brought to the ER where she was evaluated. A very poor historian. Probably encephalopathic from alcoholic liver disease. Is a heavy drinker. Also has a significant psychiatric history. Has no intention of quitting drinking. Daughter is in the room today. Anyway she drinks about 7 drinks a day, maybe more. She has lost about 40 pounds over the last month or so. Does smoke cigarettes. No history of illicit drugs at this time. The patient is really not able to give any history at this time. The daughter does want her to be hospice or palliative care. Her home medications including Prozac, Synthroid, naproxen, Klonopin. Allergies to PREDNISONE. Medical history includes alcoholic liver disease and cirrhosis, pneumonia, ( ) with weight loss, liver failure, hypothyroidism and probably depression. Surgical history includes nothing. Social history is positive for every day smoker and every day drinker. Heavy drinker, at least 7 drinks a day may be more. Family history is not known. Occupational history is noncontributory. REVIEW OF SYSTEMS: Cannot be reliable obtained, but apparently there was significant weakness, decreased appetite and weight loss. Current vital signs include a temperature 98.4, heart rate 84, respiratory rate is 16, blood pressure 94/66, mean 75, saturation 99% on 2 L. Appears in no acute distress. HEENT Examination is grossly unremarkable. She has got some scleral icterus. Mucous membranes are moist. No oral lesions. NECK: Supple. Full range of motion. No adenopathy or thyromegaly. Neck veins are flat. Cardiovascular examination reveals regular rhythm and rate. Heart rate mid 80s. Lungs reveal clear breath sounds. ABDOMEN: Soft. Bowel sounds are heard. Extremities are intact. No cyanosis, clubbing or edema. The patient received 3 units of pRBCs. The patient did not recall any Levophed. Apparently, had a scope by Dr. Bustillos on August 20. Labs are reviewed. White count 10.3, hemoglobin 9.8. Initial hemoglobin was 5.2, hematocrit 28.5, platelet count 67,000. PT, INR was 12.6 and 1.3 respectively. Sodium 138, potassium 2.7, chloride 102, CO2 of 23. BUN and creatinine were 34 and 0.88. Lactic was 2.3 then 1.2. Calcium 7. Total bilirubin 2.7, AST 47, ALT 27. Her TSH is 7.760 suggesting that she is not taking her Synthroid. Urine is noted. The urine is consistent with a bladder infection. Chest x-ray shows normal chest. Head CT and cervical spine CT shows mild cerebral atrophy. No acute intracranial abnormality. Multilevel cervical spondylosis without fracture. Her medications are reviewed. She is on Tylenol, Klonopin, Diflucan, Prozac, updrafts which can be discontinued, Synthroid, Ativan, morphine, Protonix, potassium replacement. ASSESSMENT 1. Severe alcoholic liver disease with alcoholic cirrhosis. 2. Gastrointestinal bleed with anemia. 3. Mild coagulopathy. 4. Hypothyroidism, patient noncompliant with thyroid medications. 5. Alcoholic liver disease. 6. Jaundice. 7. History of anxiety and depression. 8. Posttraumatic stress disorder. 9. Attention deficit hyperactivity disorder. 10. Ongoing tobacco use. PLAN: Prognosis is poor. Family wants to make the patient hospice/palliative care. I will go through and discontinue all the unnecessary medication. Tylenol would not be a good idea on her. Also, we will discontinue the updrafts as she is currently on room air and not requiring any oxygen. Her saturations are fine. Additional recommendations and suggestions are forthcoming. We will move her out of the ICU to a general medical floor. JUAN
--- NOTE | 2016-09-14 12:17 | HP ---
CHIEF COMPLAINT: Dehydration. HISTORY OF PRESENT ILLNESS: This 51-year-old woman with a past history of alcoholism and alcoholic cirrhosis, apparently found on the floor with some GI bleeding. The patient is unresponsive. The patient complains of weakness. The patient came to [facility] ER for further evaluation and treatment. The patient had lost about 40 pounds of weight over the past couple of months. After admission the patient was monitored in the ICU. The patient also had a history of noncompliance. After admission the patient's continues to be hypotensive. The case at length with the family and the patient and the patient is opting or palliative care or hospice care. The patient will be closely monitored. The patient is followed by Dr. Gonzalez in the outpatient setting. PAST MEDICAL HISTORY: History of alcoholism, history of cirrhosis of the liver , history of GERD, history of pneumonia, hypothyroidism. HOME MEDICATIONS: 1. Tylenol p.r.n. 2. Ativan. 3. Morphine sulfate 2 mg q3 p.r.n. 4. Zofran. 5. Compazine. 6. Scopolamine ALLERGIES: PREDNISONE. Family history, social history and review of systems could not be taken because of the patient's mental status. History of alcohol and smoking per chart. PHYSICAL EXAMINATION: The patient is stuporous. The pulse is 90, blood pressure 140/74, respirations 20, temperature normal. HEENT: Conjunctivae pale. Oral mucosa moist. NECK: No JVD, no lymphadenopathy. CARDIOVASCULAR: S1/S2. RESPIRATORY: Diminished breath sounds, especially in the bases. Scattered rhonchi, no crackles. ABDOMEN: Soft. present. The liver is hard and . No ascites. LEGS: Minimal edema. NEURO: Higher functions mentioned earlier. Moves all four extremities. No focal deficits. LYMPHATICS: None. SKIN: No rash. LABS: Hemoglobin 9.8 and 11.3. Otherwise, the last potassium 2.7. ASSESSMENT: 1. Acute upper gastrointestinal bleeding from possible variceal bleeding and cirrhosis of the liver. 2. Alcoholic cirrhosis fo the liver. 3. Change in mental status, metabolic encephalopathy. 4. Severe hypokalemia. 5. Alcoholic hepatitis. 6. History of coagulopathy. 7. Alcoholic liver disease. 8. Anxiety and depression. 9. Posttraumatic stress disorder. 10. Noncompliance. 11. Hypothyroidism. 12. NO CODE, NO CPR. 13. Hospice care. RECOMMENDATIONS AND DISCUSSION: This 51-year-old woman presented with multiple complex medical issues. We will monitor the patient closely, continue the current medication, continue symptomatic treatment at this time. The prognosis is guarded because of multiple complex medical issues . The patient and family have opted for comfort measures. Morphine has been ordered. The patient is currently sedated. Recommend morphine on a p.r.n. basis and if the patient is restless the morphine drip may be initiated. Continue other parts of the protocol. Guarded prognosis. Further recommendations to follow. See orders for details. MTDD
== END 2016-09-13 11:43 | disposition hospice, inpatient (51) | DRG 377 ==
LOC: EC 17:50 → 6ICU 20:34 → 4MS4W 09-13 11:38
PROVIDERS: ADMIT Hospitalist; ATTEND Hospitalist
DX: K92.2 Gastrointestinal hemorrhage, unspecified (principal); G93.41 Metabolic encephalopathy; D68.9 Coagulation defect, unspecified; E87.1 Hypo-osmolality and hyponatremia; D62 Acute posthemorrhagic anemia; D69.6 Thrombocytopenia, unspecified; E87.8 Other disorders of electrolyte and fluid balance, not elsewhere classified; Z51.5 Encounter for palliative care; I95.9 Hypotension, unspecified; E86.0 Dehydration; K70.30 Alcoholic cirrhosis of liver without ascites; E03.9 Hypothyroidism, unspecified; E87.6 Hypokalemia; F17.210 Nicotine dependence, cigarettes, uncomplicated; F32.9 Major depressive disorder, single episode, unspecified; F43.10 Post-traumatic stress disorder, unspecified; F90.9 Attention-deficit hyperactivity disorder, unspecified type; K21.9 Gastro-esophageal reflux disease without esophagitis; K70.10 Alcoholic hepatitis without ascites; M46.92 Unspecified inflammatory spondylopathy, cervical region; N28.9 Disorder of kidney and ureter, unspecified; R09.02 Hypoxemia; R32 Unspecified urinary incontinence; F10.20 Alcohol dependence, uncomplicated; R63.4 Abnormal weight loss; R15.9 Full incontinence of feces; F41.9 Anxiety disorder, unspecified; Z79.899 Other long term (current) drug therapy; Z91.14 Patient's other noncompliance with medication regimen; Z88.8 Allergy status to other drugs, medicaments and biological substances; Z66 Do not resuscitate; W19.XXXA Unspecified fall, initial encounter; Y92.009 Unspecified place in unspecified non-institutional (private) residence as the place of occurrence of the external cause
CPT/HCPCS: 36415; 70450; 71020; 72125; 80048; 80053; 80074; 81001; 82140; 82272; 82550; 82553; 83605; 83735; 84100; 84443; 84484; 85025; 85610; 85730; 86850; 86900; 86901; 86920; 87040; 87077; 87086; 87186; 93005

== ENCOUNTER 2016-09-13 11:49 | Inpatient (IN) | payer MEDICAID ==
[2016-09-13] MEDS ORDERED: PROCHLORPERAZINE 10 MG TAB PO PRN (12:03)
[2016-09-13] MEDS ORDERED: ONDANSETRON 4 MG/2 ML VIAL IVP PRN (12:03)
[2016-09-13] MEDS ORDERED: BISACODYL 10 MG SUPP RECTAL PRN (12:04)
[2016-09-13] MEDS ORDERED: ACETAMINOPHEN SUPPOSITORY 650 MG SUPP RECTAL PRN (12:05)
[2016-09-13] MEDS: MORPHINE SULFATE 2 MG/ML SYRINGE IVP PRN (12:33)
[2016-09-13] MEDS ORDERED: SCOPOLAMINE 1.5MG/72HR PATCH TRANSDERM SCH (13:00)
[2016-09-13] MEDS: LORazepam 2 MG/ML SYRINGE IV PRN ×3 (13:08→21:27)
[2016-09-13 15:34] VITALS: BMI 18.5
[2016-09-14] MEDS: LORazepam 2 MG/ML SYRINGE IV PRN ×6 (00:49→17:59)
[2016-09-14] MEDS: MORPHINE SULFATE 2 MG/ML SYRINGE IVP PRN ×3 (06:27→13:02)
[2016-09-14] MEDS: MORPHINE SULFATE (100 MG/2 ML) 100 MG in SODIUM CHLORIDE 0.9% 100 ML IV SCH (14:35)
[2016-09-15] MEDS: MORPHINE SULFATE (100 MG/2 ML) 100 MG in SODIUM CHLORIDE 0.9% 100 ML IV SCH (06:51)
[2016-09-15 07:46] VITALS: BP 73/44; PULSE 125; TEMP 103.8
[2016-09-15] MEDS: LORazepam 2 MG/ML SYRINGE IV PRN (10:04)
[2016-09-15 10:39] VITALS: RESP 20
--- NOTE | 2016-09-15 12:57 | PN ---
DATE OF SERVICE: 09/14/16 This 51-year-old woman was admitted with upper GI bleeding, dehydration, cirrhosis, is being closely monitored. The patient is under Hospice care. The patient is sedated. Morphine drip will be initiated soon. PHYSICAL EXAMINATION: The patient is stuporous. Pulse 90. Blood pressure 168/ 47. Respiratory rate 16. Temperature 97.3. Pulse ox 93% on room air. HEENT: Conjunctivae normal. NECK: No JVD. CARDIOVASCULAR: S1. S2. RESPIRATORY: Breath sounds diminished at the bases. Scattered rhonchi and no crackles. ABDOMEN: Soft. Nontender. LEGS: No edema. No swelling. NERVOUS SYSTEM: The patient is stuporous. LABS: Not available. ASSESSMENT: 1. Acute upper gastrointestinal bleeding with possible bleeding cirrhosis of the liver. 2. Alcoholic cirrhosis. 3. Change in mental status, metabolic encephalopathy. 4. Severe hypokalemia. 5. Alcoholic hepatitis. 6. History of alcoholic liver disease. 7. Anxiety, depression. 8. Posttraumatic stress disorder. 9. History of noncompliance. 10. NO CODE, NO CPR, NO VENT. 11. HOSPICE CARE. RECOMMENDATIONS AND DISCUSSION: In this 51 -year-old woman who presented with multiple medical issues, we will monitor the patient closely. Continue the current medications, continue with Hospice. Continue morphine drip. Guarded prognosis. Discussed with family, understands and agrees. Further recommendations to follow MTDD
--- NOTE | 2016-09-16 12:54 | PN ---
DATE OF SERVICE: 09/15/2016 This 51-year-old woman who was admitted with acute upper GI bleeding, also had cirrhosis of the liver. The patient is on morphine drip. At this time, the patient is comfort care. PAST MEDICAL HISTORY: Reviewed. REVIEW OF SYSTEMS: Could not be taken. PHYSICAL EXAM: The patient is . The pulse is 125, blood pressure 73/44, respirations 22, temperature 103.8, pulse ox 77% on room air. HEENT: Conjunctivae normal. NECK: No jugular venous distention. CARDIOVASCULAR: S1 and S2 muffled. RESPIRATORY: Breath sounds diminished at the bases. A few scattered rhonchi. ABDOMEN: Soft. NERVOUS SYSTEM: Sedated. The labs are not available. ASSESSMENT: 1. Acute upper gastrointestinal bleeding with possible variceal bleeding with cirrhosis of the liver. 2. Alcoholic cirrhosis. 3. Change in mental status, metabolic encephalopathy. 4. Severe hypokalemia. 5. Alcoholic hepatitis. 6. History of anxiety and depression. 7. NO CODE, NO CPR, NO VENT. 8. Hospice care. RECOMMENDATIONS AND DISCUSSION: This 51-year-old woman who presented with multiple complex medical issues. Will monitor the patient closely. Continue the morphine drip. Otherwise, I would also recommend Ativan p.r.n. We will be happy to review. Otherwise, continue to monitor. Further recommendations to follow. Prognosis guarded. Discussed with the family, understands and agrees. MTDD
--- NOTE | 2016-10-21 08:17 | DS ---
DISCHARGE SUMMARY The preliminary cause of is alcoholic cirrhosis. OTHER DIAGNOSES: 1. Acute upper gastrointestinal bleeding with possible variceal bleeding and cirrhosis of the liver. 2. Change in mental status, metabolic encephalopathy. 3. Severe hypokalemia. 4. Alcoholic hepatitis. 5. History of anxiety, depression. 6. NO CODE, NO CPR, NO VENT and hospice care. HISTORY OF PRESENT ILLNESS: This 51-year-old woman with past medical history of multiple medical problems admitted with acute upper GI bleeding and as well as alcoholic features, alcoholic cirrhosis and metabolic encephalopathy. Patient was treated symptomatically, but however the case was discussed with the family and the family would like to go with NO CODE, NO CPR, NO VENT and hospice and comfort measures, which was continued and the patient succumbed to her above mentioned illness in the hospital. The prognosis remained guarded throughout the hospital stay. Please refer to the multiple consultations and notes for further information. MMODL / IJN: [id number] /
== END 2016-09-15 18:45 | disposition expired | DRG 432 ==
LOC: 4MS4W 11:49
PROVIDERS: ADMIT Hospitalist; ATTEND Hospitalist
PROC: 0T9B70Z Drainage of Bladder with Drainage Device, Via Natural or Artificial Opening (ICD-10-PCS; principal; 2016-09-13)
DX: K70.30 Alcoholic cirrhosis of liver without ascites (principal); I85.11 Secondary esophageal varices with bleeding; K70.10 Alcoholic hepatitis without ascites; G93.41 Metabolic encephalopathy; I95.9 Hypotension, unspecified; E87.6 Hypokalemia; E86.0 Dehydration; Z51.5 Encounter for palliative care; Z66 Do not resuscitate; K21.9 Gastro-esophageal reflux disease without esophagitis; F10.20 Alcohol dependence, uncomplicated; E03.9 Hypothyroidism, unspecified; R53.1 Weakness; R63.4 Abnormal weight loss; F41.9 Anxiety disorder, unspecified; F32.9 Major depressive disorder, single episode, unspecified; F43.10 Post-traumatic stress disorder, unspecified; Z71.3 Dietary counseling and surveillance; Z91.19 Patient's noncompliance with other medical treatment and regimen; Z88.8 Allergy status to other drugs, medicaments and biological substances; Z86.2 Personal history of diseases of the blood and blood-forming organs and certain disorders involving the immune mechanism; Z87.891 Personal history of nicotine dependence; Z87.01 Personal history of pneumonia (recurrent); Z79.891 Long term (current) use of opiate analgesic; Z79.899 Other long term (current) drug therapy; W19.XXXD Unspecified fall, subsequent encounter